=== PATIENT | female | born 2000 | race Caucasian/White ===

== ENCOUNTER 2020-10-20 17:05 | Emergency (ER) | payer OTHER ==
[~2020-10-20] VITALS: Ht 172.7 cm; Wt 56.7 kg
[2020-10-20] MEDS ORDERED: PROAIR HFA8.5 GM INH (17:19)
[2020-10-20] MEDS ORDERED: NAPROSYN500 MG PO (18:29)
[2020-10-20] MEDS ORDERED: TRAMADOL 50 MG50 MG PO (18:29)
[2020-10-20 18:34] VITALS: BP 124/72
== END 2020-10-20 18:34 | disposition home or self-care (01) ==
LOC: M.ERS 17:05
DX: R07.81 Pleurodynia (principal); J45.909 Unspecified asthma, uncomplicated

== ENCOUNTER 2020-11-08 20:25 | Emergency (ER) | payer OTHER ==
[~2020-11-08] VITALS: Ht 172.7 cm; Wt 59.0 kg
[~2020-11-08 20:25] MED LIST: NAPROSYN500 MG PO; PROAIR HFA8.5 GM INH; TRAMADOL 50 MG50 MG PO
[2020-11-08] MEDS ORDERED: IPRAT-ALBUT 0.5-3 ML INH (20:35)
[2020-11-08] MEDS ORDERED: PREDNISONE 10 M10 MG PO (21:29)
[2020-11-08] MEDS ORDERED: PROAIR HFA8.5 GM INH (21:29)
[2020-11-08 21:58] VITALS: BP 126/73
== END 2020-11-08 21:58 | disposition home or self-care (01) ==
LOC: M.ERS 20:25
DX: J45.909 Unspecified asthma, uncomplicated (principal); Z79.899 Other long term (current) drug therapy; Z91.048 Other nonmedicinal substance allergy status

== ENCOUNTER 2020-11-13 19:57 | Emergency (ER) | payer OTHER ==
[~2020-11-13] VITALS: Ht 172.7 cm; Wt 59.0 kg
[~2020-11-13 19:57] MED LIST changes: +IPRAT-ALBUT 0.5-3 ML INH; +PREDNISONE 10 M10 MG PO
[2020-11-13 20:13] VITALS: BP 134/87
[2020-11-13] MEDS ORDERED: KEFLEX500 M1 PO (20:47)
== END 2020-11-13 20:54 | disposition home or self-care (01) ==
LOC: M.ERS 19:57
DX: S01.111A Laceration without foreign body of right eyelid and periocular area, initial encounter (principal); J45.909 Unspecified asthma, uncomplicated; W22.8XXA Striking against or struck by other objects, initial encounter; Y93.89 Activity, other specified; Y92.89 Other specified places as the place of occurrence of the external cause; Y99.8 Other external cause status

== ENCOUNTER 2020-11-20 17:30 | Emergency (ER) | payer OTHER ==
[~2020-11-20] VITALS: Ht 172.7 cm; Wt 59.0 kg
[~2020-11-20 17:30] MED LIST changes: +KEFLEX500 M1 PO
[2020-11-20 18:44] VITALS: BP 120/68
== END 2020-11-20 18:45 | disposition home or self-care (01) ==
LOC: M.ERS 17:30
DX: S01.111D Laceration without foreign body of right eyelid and periocular area, subsequent encounter (principal); Z79.899 Other long term (current) drug therapy; X58.XXXD Exposure to other specified factors, subsequent encounter